=== PATIENT | female | born 1950 | race Caucasian/White ===

== ENCOUNTER 2022-05-14 11:21 | Emergency (ER) | payer OTHER ==
[~2022-05-14] VITALS: Ht 162.6 cm; Wt 78.0 kg
[2022-05-14] MEDS ORDERED: JANUMET 50-5001 EACH PO (12:10)
[2022-05-14] MEDS ORDERED: COZAAR100 MG PO (12:11)
[2022-05-14] MEDS ORDERED: TRICOR145 MG PO (12:11)
[2022-05-14] MEDS ORDERED: TENORMIN25 MG PO (12:11)
[2022-05-14] MEDS ORDERED: GLIPIZIDE XL5 MG PO (12:13)
[2022-05-14] MEDS ORDERED: TRAZODONE HCL50 MG PO (12:13)
== END 2022-05-14 14:37 | disposition home or self-care (01) ==
LOC: ER 11:21
DX: M25.562 Pain in left knee (principal); E11.9 Type 2 diabetes mellitus without complications; Z79.84 Long term (current) use of oral hypoglycemic drugs; I10 Essential (primary) hypertension; Z88.0 Allergy status to penicillin; Z91.013 Allergy to seafood